=== PATIENT | male | born 1975 | race African-American/Black ===

== ENCOUNTER 2019-10-21 10:34 | Inpatient (IN) | payer OTHER ==
--- NOTE | 2019-10-21 10:48 | BHS.RME ---
Substance Use & Tx History - Substance Use History Alcohol Substance amount: 3 pints vodka 3 beers Frequency of use: Daily Substance route: Oral Date of Last Use: 10/21/19 (12 am) - Last Treatment Date of last treatment: 08/2019 Treatment type: Substance Use Disorder (AILYN) Where was last treatment: Detox Physical/Psych/Mental Status - Behavior General Behavior: Increased activity (restlessness, agitation) Eye Contact: Normal - Cooperativeness Cooperativeness: Cooperative - Thinking Thought Processes: Tight, Logical, Goal Directed Thought content: Future oriented - Physical Health Problems Is patient presently having any pain?: No Does patient presently have any injuries (include location): No Does patient currently have a fever: No Is patient : No CIWA Nausea/Vomitin Muscle Tremors: 3 Anxiety: 4-Mod. Anxious/Guarded Agitation: 3 Paroxysmal Sweats: 1-Minimal Palms Moist Orientation: 0-Oriented Tacttile Disturbances: 0-None Auditory Disturbances: 0-None Visual Disturbances: 0-None Headache: 2-Mild CIWA-Ar Total Score: 16
[2019-10-21 11:33] VITALS: BMI 26.6
--- NOTE | 2019-10-21 11:39 | HP ---
<Donna Ontiveros Brittanie - Last Filed: 10/21/19 11:34> CIWA Score Nausea/Vomitin Muscle Tremors: 3 Anxiety: 4-Mod. Anxious/Guarded Agitation: 3 Paroxysmal Sweats: 1-Minimal Palms Moist Orientation: 0-Oriented Tacttile Disturbances: 0-None Auditory Disturbances: 0-None Visual Disturbances: 0-None Headache: 2-Mild CIWA-Ar Total Score: 16 - Admission Criteria OASAS Guidelines: Admission for Medically Managed Detox: Requires at least one of the followin. CIWA greater than 12 2. Seizures within the past 24 hours 3. Delirium tremens within the past 24 hours 4. Hallucinations within the past 24 hours 5. Acute intervention needed for co occurring medical disorder 6. Acute intervention needed for co occurring psychiatric disorder 7. Severe withdrawal that cannot be handled at a lower level of care (continued vomiting, continued diarrhea, abnormal vital signs) requiring intravenous medication and/or fluids 8. Admitting History and Physical - Admission Chief Complaint: Mr. Peraza is a 43 yo man who presents to [facility] stating "I want to get off alcohol". History of Present Illness: Mr. Peraza is a 43 yo man who presents to [facility] stating "I want to get off alcohol". This is his first visit to [facility]. He was in the ED at [facility] last night for alcohol use and seizure and received Ativan, Librium and Keppra. Alcohol level 124, oxygern 89% PMH: Acid reflux, seizure PSH: none Psych: bipolar, depression Soc: homeless, not in jail Legal: none Substance use history: Alcohol: 3 pints Vodka, started age 20y, last use 10/21/19: 12 am. Beer 3 can of 24 ounces daily. Seizure history. History Source: Patient Limitations to Obtaining History: No Limitations Admission ROS [facility] Allergies/Adverse Reactions: Allergies Allergy/AdvReac Type Severity Reaction Status Date / Time Penicillins Allergy Intermediate Hives Verified 10/21/19 11:23 Exam Limitations: No Limitations - Ebola screening Have you traveled outside of the country in the last 21 days: No Have you had contact with anyone from an Ebola affected area: No Have you been sick,other than usual withdrawal symptoms: No Do you have a fever: No - Review of Systems Constitutional: No Symptoms Reported EENT: reports: Nose Congestion Respiratory: reports: No Symptoms reported Cardiac: reports: No Symptoms Reported GI: reports: No Symptoms Reported : reports: No Symptoms Reported Musculoskeletal: reports: No Symptoms Reported Integumentary: reports: No Symptoms Reported Neuro: reports: Tremors Endocrine: reports: No Symptoms Reported Hematology: reports: No Symptoms Reported Psychiatric: reports: Anxious Patient History - Substances abused Alcohol Substance route: Oral Frequency: Daily Amount used: 2 PINTS VODKA/3 BEERS Age of first use: 20 Date of last use: 10/20/19 Admission Physical Exam [facility] - Vital Signs Vital Signs: Vital Signs - 24 hr 10/21/19 11:30 Temperature 98.8 F Pulse Rate 114 H Respiratory 18 Rate Blood Pressure 126/85 Cleared for Admission [facility] - Detox or Rehab [facility] Level of Care: Medically Managed Breathalyzer - Breathalyzer Breathalyzer: 0 Urine Drug Screen - Test Device Lot number: [id number] Expiration date: 07/18/21 - Control Is test valid?: Yes - Results Drug screen NEGATIVE: No Urine drug screen results: BZO-Benzodiazepines Inpatient Rehab Admission - Rehab Decision to Admit Inpatient rehab admission?: No <Christiano Keys - Last Filed: 10/21/19 12:03> CIWA Score - Admission Criteria OASAS Guidelines: Admission for Medically Managed Detox: Requires at least one of the followin. CIWA greater than 12 2. Seizures within the past 24 hours 3. Delirium tremens within the past 24 hours 4. Hallucinations within the past 24 hours 5. Acute intervention needed for co occurring medical disorder 6. Acute intervention needed for co occurring psychiatric disorder 7. Severe withdrawal that cannot be handled at a lower level of care (continued vomiting, continued diarrhea, abnormal vital signs) requiring intravenous medication and/or fluids 8. Patient History - Patient Medical History Hx Anemia: No Hx Asthma: No Hx Chronic Obstructive Pulmonary Disease (COPD): No Hx Cancer: No Hx Cardiac Disorders: No Hx Congestive Heart Failure: No Hx Hypertension: No Hx Hypercholesterolemia: No Hx Pacemaker: No HX Cerebrovascular Accident: No Hx Seizures: Yes Hx Dementia: No Hx Diabetes: No - Patient Surgical History Past Surgical History: No Hx Neurologic Surgery: No Hx Cataract Extraction: No Hx Cardiac Surgery: No Hx Lung Surgery: No Hx Breast Surgery: No Hx Breast Biopsy: No Hx Abdominal Surgery: No Hx Appendectomy: No Hx Cholecystectomy: No Hx Genitourinary Surgery: No Hx Section: No Hx Orthopedic Surgery: No Hx Hysterectomy: No Anesthesia Reaction: No - PPD History Previous Implant?: Yes Documented Results: Negative w/o proof Implanted On Prior [facility] Admission?: No Date: 08/26/19 ([facility]) Results: negative PPD to be Administered?: Yes - Smoking Cessation Smoking history: Never smoked Have you smoked in the past 12 months: No Hx Chewing Tobacco Use: No Initiated information on smoking cessation: No - Substance & Tx. History Hx Alcohol Use: Yes (2months ago at [facility]) Substance Use Type: Alcohol Hx Substance Use Treatment: Yes Admission Physical Exam [facility] - Vital Signs Vital Signs: Vital Signs - 24 hr 10/21/19 11:30 Temperature 98.8 F Pulse Rate 114 H Respiratory 18 Rate Blood Pressure 126/85 - Physical HEENTM: Yes: EOMI, Hearing grossly Normal, Normal ENT Inspection, Normocephalic, Normal Voice, FORREST, Pharynx Normal, Tm's normal Respiratory: Yes: Chest Non-Tender, Lungs Clear, Normal Breath Sounds, No Respiratory Distress, No Accessory Muscle Use Neck: Yes: Within Normal Limits, No masses,lesions,Nodules, Supple, Trachea in good position Breast: Yes: Within Normal Limits Cardiology: Yes: Regular Rhythm, S1, S2, Tachycardia Abdominal: Yes: Normal Bowel Sounds, Soft, Decreased BS, Protuberent, Tenderness. No: Guarding, Rebound Genitourinary: Yes: Within Normal Limits Back: Yes: Normal Inspection Musculoskeletal: Yes: full range of Motion, Gait Steady, Pelvis Stable Extremities: Yes: Normal Capillary Refill, Normal Inspection, Normal Range of Motion, Non-Tender Neurological: Yes: lean engineer II-XII NML intact, Fully Oriented, Alert, Motor Strength 5/5, Normal Mood/Affect, Normal Response Integumentary: Yes: Normal Color, Warm Lymphatic: Yes: Within Normal Limits Screened but not Admitted - Documentation of Visit Screened but not Admitted: No Inpatient Rehab Admission - Rehab Decision to Admit Inpatient rehab admission?: No
[2019-10-21] MEDS ORDERED: IBUPROFEN 400 MG TABLET (FP) PO PRN (12:03)
[2019-10-21] MEDS ORDERED: ONDANSETRON *ODT* 4 MG TABLET SL ONE (12:03)
[2019-10-21] MEDS ORDERED: MAG HYDROX/AL HYDROX/SIMETH 30 ML UNIT-DOSE CUP PO PRN (12:03)
[2019-10-21] MEDS ORDERED: ACETAMINOPHEN 325 MG TABLET (FP) PO PRN ×2 (12:03)
[2019-10-21] MEDS ORDERED: BISMUTH SUBSALICYLATE 262 MG/15 ML BTL PO PRN (12:03)
[2019-10-21] MEDS ORDERED: MAGNESIUM HYDROX 2400MG/30ML ORAL SUSPENSION 30 ML CUP PO PRN (12:03)
[2019-10-21] MEDS ORDERED: METHOCARBAMOL 500 MG TABLET PO PRN (12:03)
[2019-10-21] MEDS ORDERED: chlordiazePOXIDE HCL 25 MG CAPSULE PO PRN (12:03)
[2019-10-21] MEDS ORDERED: MENTHOL/PHENOL 1 EACH UD MM PRN (12:03)
[2019-10-21] MEDS ORDERED: NICOTINE POLACRILEX 2 MG GUM BUC PRN (12:03)
[2019-10-21] MEDS ORDERED: MAGNESIUM CITRATE 300 ML BOTTLE PO PRN (12:03)
[2019-10-21] MEDS: PANTOPRAZOLE 40 MG TABLET PO SCH (14:12)
[2019-10-21] MEDS: GABAPENTIN 400 MG CAPSULE PO SCH ×2 (14:12→22:21)
[2019-10-21] MEDS: hydrOXYzine PAMOATE 25 MG CAPSULE (FP) PO SCH ×3 (14:13→22:21)
--- NOTE | 2019-10-21 14:48 | PN ---
[facility] Progress Note Note: Web Development Director attempted to interview patient. He is too drowsy to be seen at this time. Will re consult at a more appropriate time
[2019-10-21 15:24] LABS: HEMATOCRIT 33.4 % (35.4-49); HEMOGLOBIN 10.6 GM/dL (11.7-16.9); MCH 27.5 pg (25.7-33.7); MCHC 31.8 g/dl (32.0-35.9); MEAN CELL VOLUME 86.5 fl (80-96); MEAN PLT VOLUME 8.1 fl (7.5-11.1); PLATELET COUNT 363 K/MM3 (134-434); RBC 3.86 M/mm3 (4.00-5.60); RDW 23.1 % (11.9-15.9); WHITE BLOOD COUNT 7.8 K/mm3 (4.0-10.0)
[2019-10-21 16:10] LABS: ALBUMIN 3.7 g/dl (3.4-5.0); BILIRUBIN,TOTAL 0.8 mg/dL (0.2-1); BLOOD UREA NITROGEN 19.6 mg/dL (7-18); CALCIUM 9.1 mg/dL (8.5-10.1); CREATININE 1.2 mg/dL (0.55-1.3); POTASSIUM 3.6 mmol/L (3.5-5.1); TOT PROT 8.8 g/dl (6.4-8.2)
[2019-10-21] MEDS: chlordiazePOXIDE HCL 25 MG CAPSULE PO SCH ×2 (17:11→22:21)
[2019-10-21] MEDS: MELATONIN 5 MG TABLETS PO SCH (22:21)
[2019-10-21] MEDS: THIAMINE HCL 100 MG TABLET (FP) PO SCH (22:21)
[2019-10-21] MEDS: levETIRAcetam 500 MG TABLET (FP) PO SCH (22:21)
[2019-10-22] MEDS: GABAPENTIN 400 MG CAPSULE PO SCH ×3 (07:46→22:22)
[2019-10-22] MEDS: hydrOXYzine PAMOATE 25 MG CAPSULE (FP) PO SCH ×5 (07:46→22:25)
[2019-10-22] MEDS: chlordiazePOXIDE HCL 25 MG CAPSULE PO SCH ×4 (07:46→22:22)
--- NOTE | 2019-10-22 09:59 | PN ---
S CIWA - CIWA Score Nausea/Vomitin Muscle Tremors: 2 Anxiety: 2 Agitation: 2 Paroxysmal Sweats: 2 Orientation: 0-Oriented Tacttile Disturbances: 1-Very Mild Itch/Numbness Auditory Disturbances: 0-None Visual Disturbances: 0-None Headache: 1-Very Mild CIWA-Ar Total Score: 12 S Progress Note (SOAP) Subjective: alert,irritable,anxious,interrupted sleep,tremor,aching pain Objective: 10/22/19 09:56 Vital Signs Temperature 97.1 F L 10/22/19 09:01 Pulse Rate 121 H 10/22/19 09:01 Respiratory Rate 20 10/22/19 09:01 Blood Pressure 113/70 10/22/19 09:01 O2 Sat by Pulse Oximetry (%) Laboratory Last Values WBC 7.8 K/mm3 (4.0-10.0) 10/21/19 12:15 RBC 3.86 M/mm3 (4.00-5.60) L 10/21/19 12:15 Hgb 10.6 GM/dL (11.7-16.9) L 10/21/19 12:15 Hct 33.4 % (35.4-49) L 10/21/19 12:15 MCV 86.5 fl (80-96) 10/21/19 12:15 MCH 27.5 pg (25.7-33.7) 10/21/19 12:15 MCHC 31.8 g/dl (32.0-35.9) L 10/21/19 12:15 RDW 23.1 % (11.9-15.9) H 10/21/19 12:15 Plt Count 363 K/MM3 (134-434) 10/21/19 12:15 MPV 8.1 fl (7.5-11.1) 10/21/19 12:15 Sodium 138 mmol/L (136-145) 10/21/19 12:15 Potassium 3.6 mmol/L (3.5-5.1) 10/21/19 12:15 Chloride 95 mmol/L (98-107) L 10/21/19 12:15 Carbon Dioxide 31 mmol/L (21-32) 10/21/19 12:15 Anion Gap 12 MMOL/L (8-16) 10/21/19 12:15 BUN 19.6 mg/dL (7-18) H 10/21/19 12:15 Creatinine 1.2 mg/dL (0.55-1.3) 10/21/19 12:15 Est GFR (CKD-EPI)AfAm 85.92 10/21/19 12:15 Est GFR (CKD-EPI)NonAf 74.14 10/21/19 12:15 Random Glucose 104 mg/dL (74-106) 10/21/19 12:15 Calcium 9.1 mg/dL (8.5-10.1) 10/21/19 12:15 Total Bilirubin 0.8 mg/dL (0.2-1) 10/21/19 12:15 AST 48 U/L (15-37) H 10/21/19 12:15 ALT 51 U/L (13-61) 10/21/19 12:15 Alkaline Phosphatase 87 U/L (45-117) 10/21/19 12:15 Total Protein 8.8 g/dl (6.4-8.2) H 10/21/19 12:15 Albumin 3.7 g/dl (3.4-5.0) 10/21/19 12:15 RPR Titer Nonreactive (NONREACTIVE) 10/21/19 12:15 Assessment: 10/22/19 09:58 withdrawal symptom Plan: continue detox lirium regimen
[2019-10-22] MEDS: PRENATAL VITAMINS W/ FOLIC ACID TABLET (FP) PO SCH (10:54)
[2019-10-22] MEDS: PANTOPRAZOLE 40 MG TABLET PO SCH (10:55)
[2019-10-22] MEDS: NICOTINE 7 MG/24 HOURS TOPICAL PATCH TD SCH (10:58)
--- NOTE | 2019-10-22 13:58 | CONSULT ---
[facility] Psychiatric Consult - Data Date of interview: 10/22/19 Admission source: [facility] Identifying data: Patient is a 43 year old single male, without children, unemployed, homeless, and is supported by his grandmother. This is patient's first admission to detox at [facility]. Patient admitted to for alcohol dependence. Substance Abuse History: Smoking Cessation. Smoking history: Never smoked. Have you smoked in the past 12 months: No. Hx Chewing Tobacco Use: No. Initiated information on smoking cessation: No. - Substance & Tx. History. Hx Alcohol Use: Yes (2months ago at [facility]). Substance Use Type: Alcohol. Hx Substance Use Treatment: Yes Medical History: Acid reflux, seizure Psychiatric History: Patient denies history of psychiatric hospitalizations and suicide attempt. States that he first a psychiatrist five years ago at [facility] and was diagnosed with Bipolar disorder and claims to be prescribed seroquel 400mg HS. He also reports past treatment with prozac. Patient discontinued treatment in January of 2019 due to insurance issues and states that he has been receiving seroquel prescriptions from his PCP. At present patient re ports feeling sad and is experiencing difficulty sleeping. Physical/Sexual Abuse/Trauma History: denies. Mental Status Exam - Mental Status Exam Alert and Oriented to: Time, Place, Person Cognitive Function: Good Patient Appearance: Well Groomed Mood: Sad, Withdrawn Affect: Mood Congruent Patient Behavior: Cooperative Speech Pattern: Appropriate Voice Loudness: Normal Thought Process: Goal Oriented Thought Disorder: Not Present Hallucinations: Denies Suicidal Ideation: Denies Homicidal Ideation: Denies Insight/Judgement: Poor Sleep: Poorly Appetite: Fair Muscle strength/Tone: Normal Gait/Station: Normal Psychiatric Findings - Problem List ([place] 1, 2,3) (1) Alcohol use disorder Current Visit: Yes Status: Acute (2) Substance-induced sleep disorder Current Visit: Yes Status: Acute (3) Mood disorder Current Visit: Yes Status: Chronic - Initial Treatment Plan Initial Treatment Plan: Psychoeducation provided. Detoxification in progress. [facility] pharmacy contacted at [phone]. As per pharmacy staff patient most recently picked up a a 30 day prescription of seroquel 100mg on 08/24/19. Will order Seroquel 100mg HS. Benefits and side effects discussed. Verbal consent given.
[2019-10-22] MEDS: THIAMINE HCL 100 MG TABLET (FP) PO SCH (22:22)
[2019-10-22] MEDS: levETIRAcetam 500 MG TABLET (FP) PO SCH (22:22)
[2019-10-22] MEDS: QUEtiapine FUMARATE 100 MG TABLET (FP) PO SCH (22:22)
[2019-10-22] MEDS: MELATONIN 5 MG TABLETS PO SCH (22:23)
[2019-10-23] MEDS: hydrOXYzine PAMOATE 25 MG CAPSULE (FP) PO SCH ×5 (05:23→22:11)
[2019-10-23] MEDS: chlordiazePOXIDE HCL 25 MG CAPSULE PO SCH ×4 (05:23→22:09)
[2019-10-23] MEDS: GABAPENTIN 400 MG CAPSULE PO SCH ×3 (05:23→22:10)
[2019-10-23] MEDS: NICOTINE 7 MG/24 HOURS TOPICAL PATCH TD SCH (10:29)
[2019-10-23] MEDS: PRENATAL VITAMINS W/ FOLIC ACID TABLET (FP) PO SCH (10:29)
[2019-10-23] MEDS: PANTOPRAZOLE 40 MG TABLET PO SCH (10:29)
--- NOTE | 2019-10-23 11:00 | PN ---
S CIWA - CIWA Score Nausea/Vomitin-Mild Nausea/No Vomiting Muscle Tremors: 1-None Visible, but [place] Anxiety: 2 Agitation: 2 Paroxysmal Sweats: No Perspiration Orientation: 0-Oriented Tacttile Disturbances: 1-Very Mild Itch/Numbness Auditory Disturbances: 0-None Visual Disturbances: 0-None Headache: 2-Mild CIWA-Ar Total Score: 9 [facility] Progress Note (SOAP) Subjective: alert,irritable,anxious,interrupted sleep,pain in the body Objective: 10/23/19 11:07 Vital Signs Temperature 97.7 F 10/23/19 09:31 Pulse Rate 108 H 10/23/19 09:31 Respiratory Rate 19 10/23/19 09:31 Blood Pressure 108/73 10/23/19 09:31 O2 Sat by Pulse Oximetry (%) Assessment: 10/23/19 11:08 withdrawal symptom Plan: continue detox librium regimen
[2019-10-23] MEDS ORDERED: QUEtiapine FUMARATE 50 MG TABLET ONE (21:56)
[2019-10-23] MEDS: THIAMINE HCL 100 MG TABLET (FP) PO SCH (22:10)
[2019-10-23] MEDS: QUEtiapine FUMARATE 100 MG TABLET (FP) PO SCH (22:10)
[2019-10-23] MEDS: levETIRAcetam 500 MG TABLET (FP) PO SCH (22:10)
[2019-10-23] MEDS: MELATONIN 5 MG TABLETS PO SCH (22:11)
[2019-10-24] MEDS ORDERED: chlordiazePOXIDE HCL 10 MG CAPSULE PO PRN
[2019-10-24] MEDS: GABAPENTIN 400 MG CAPSULE PO SCH ×3 (06:41→22:09)
[2019-10-24] MEDS: hydrOXYzine PAMOATE 25 MG CAPSULE (FP) PO SCH ×5 (06:41→22:11)
[2019-10-24] MEDS: chlordiazePOXIDE HCL 10 MG CAPSULE PO SCH ×4 (06:42→22:09)
[2019-10-24] MEDS: PRENATAL VITAMINS W/ FOLIC ACID TABLET (FP) PO SCH (10:56)
[2019-10-24] MEDS: NICOTINE 7 MG/24 HOURS TOPICAL PATCH TD SCH (10:56)
[2019-10-24] MEDS: PANTOPRAZOLE 40 MG TABLET PO SCH (10:56)
--- NOTE | 2019-10-24 11:03 | PN ---
[facility] CIWA - CIWA Score Nausea/Vomitin-Mild Nausea/No Vomiting Muscle Tremors: 2 Anxiety: 2 Agitation: 2 Paroxysmal Sweats: No Perspiration Orientation: 0-Oriented Tacttile Disturbances: 1-Very Mild Itch/Numbness Auditory Disturbances: 0-None Visual Disturbances: 0-None Headache: 1-Very Mild CIWA-Ar Total Score: 9 S Progress Note (SOAP) Subjective: alert,irritable,anxious,interrupted sleep,tremor Objective: 10/24/19 11:00 Vital Signs Temperature 98.0 F 10/24/19 08:33 Pulse Rate 87 10/24/19 08:33 Respiratory Rate 19 10/24/19 08:33 Blood Pressure 155/92 10/24/19 08:33 O2 Sat by Pulse Oximetry (%) Laboratory Last Values WBC 7.8 K/mm3 (4.0-10.0) 10/21/19 12:15 RBC 3.86 M/mm3 (4.00-5.60) L 10/21/19 12:15 Hgb 10.6 GM/dL (11.7-16.9) L 10/21/19 12:15 Hct 33.4 % (35.4-49) L 10/21/19 12:15 MCV 86.5 fl (80-96) 10/21/19 12:15 MCH 27.5 pg (25.7-33.7) 10/21/19 12:15 MCHC 31.8 g/dl (32.0-35.9) L 10/21/19 12:15 RDW 23.1 % (11.9-15.9) H 10/21/19 12:15 Plt Count 363 K/MM3 (134-434) 10/21/19 12:15 MPV 8.1 fl (7.5-11.1) 10/21/19 12:15 Sodium 138 mmol/L (136-145) 10/21/19 12:15 Potassium 3.6 mmol/L (3.5-5.1) 10/21/19 12:15 Chloride 95 mmol/L (98-107) L 10/21/19 12:15 Carbon Dioxide 31 mmol/L (21-32) 10/21/19 12:15 Anion Gap 12 MMOL/L (8-16) 10/21/19 12:15 BUN 19.6 mg/dL (7-18) H 10/21/19 12:15 Creatinine 1.2 mg/dL (0.55-1.3) 10/21/19 12:15 Est GFR (CKD-EPI)AfAm 85.92 10/21/19 12:15 Est GFR (CKD-EPI)NonAf 74.14 10/21/19 12:15 Random Glucose 104 mg/dL (74-106) 10/21/19 12:15 Calcium 9.1 mg/dL (8.5-10.1) 10/21/19 12:15 Total Bilirubin 0.8 mg/dL (0.2-1) 10/21/19 12:15 AST 48 U/L (15-37) H 10/21/19 12:15 ALT 51 U/L (13-61) 10/21/19 12:15 Alkaline Phosphatase 87 U/L (45-117) 10/21/19 12:15 Total Protein 8.8 g/dl (6.4-8.2) H 10/21/19 12:15 Albumin 3.7 g/dl (3.4-5.0) 10/21/19 12:15 RPR Titer Nonreactive (NONREACTIVE) 10/21/19 12:15 Assessment: 10/24/19 11:01 withdrawal symptom Plan: continue detox librium regimen, bun elevated probably due to dehydration,encourage oral fluid
[2019-10-24] MEDS: THIAMINE HCL 100 MG TABLET (FP) PO SCH (22:09)
[2019-10-24] MEDS: levETIRAcetam 500 MG TABLET (FP) PO SCH (22:09)
[2019-10-24] MEDS: MELATONIN 5 MG TABLETS PO SCH (22:09)
[2019-10-24] MEDS: QUEtiapine FUMARATE 100 MG TABLET (FP) PO SCH (22:09)
[2019-10-25] MEDS: chlordiazePOXIDE HCL 10 MG CAPSULE PO SCH ×2 (06:01→17:59)
[2019-10-25] MEDS: hydrOXYzine PAMOATE 25 MG CAPSULE (FP) PO SCH ×5 (06:01→22:14)
[2019-10-25] MEDS: GABAPENTIN 400 MG CAPSULE PO SCH ×3 (06:01→22:12)
[2019-10-25] MEDS: PRENATAL VITAMINS W/ FOLIC ACID TABLET (FP) PO SCH (10:09)
[2019-10-25] MEDS: NICOTINE 7 MG/24 HOURS TOPICAL PATCH TD SCH (10:09)
[2019-10-25] MEDS: PANTOPRAZOLE 40 MG TABLET PO SCH (10:09)
--- NOTE | 2019-10-25 11:49 | PN ---
S CIWA - CIWA Score Nausea/Vomitin-No Nausea/No Vomiting Muscle Tremors: 2 Anxiety: 1-Mildly Anxious Agitation: 1-Slight > Activity Paroxysmal Sweats: No Perspiration Orientation: 0-Oriented Tacttile Disturbances: 0-None Auditory Disturbances: 0-None Visual Disturbances: 0-None Headache: 0-None Present CIWA-Ar Total Score: 4 [facility] Progress Note (SOAP) Subjective: feeling better little sweats Objective: 10/25/19 11:46 Vital Signs Temperature 96.4 F L 10/25/19 08:44 Pulse Rate 83 10/25/19 08:44 Respiratory Rate 18 10/25/19 08:44 Blood Pressure 129/75 10/25/19 08:44 O2 Sat by Pulse Oximetry (%) aaox3 ambulating no acute distress Assessment: 10/25/19 11:49 mild withdrawals Plan: continue detox d/c in am
[2019-10-25] MEDS ORDERED: ONDANSETRON *ODT* 4 MG TABLET SL ONE (19:00)
[2019-10-25] MEDS: THIAMINE HCL 100 MG TABLET (FP) PO SCH (22:12)
[2019-10-25] MEDS: levETIRAcetam 500 MG TABLET (FP) PO SCH (22:12)
[2019-10-25] MEDS: QUEtiapine FUMARATE 100 MG TABLET (FP) PO SCH (22:12)
[2019-10-25] MEDS: MELATONIN 5 MG TABLETS PO SCH (22:13)
[2019-10-26] MEDS ORDERED: chlordiazePOXIDE HCL 10 MG CAPSULE PO ONE (05:00)
[2019-10-26] MEDS: hydrOXYzine PAMOATE 25 MG CAPSULE (FP) PO SCH ×2 (05:39→10:12)
[2019-10-26] MEDS: GABAPENTIN 400 MG CAPSULE PO SCH (05:39)
[2019-10-26 07:10] VITALS: BP 117/72; PULSE 85; TEMP 97.1
--- NOTE | 2019-10-26 09:13 | DS ---
[facility] Detox Discharge Summary Admission Date: 10/21/19 Discharge Date: 10/26/19 - History Present History: Alcohol Dependence - Physical Exam Results Vital Signs: Vital Signs Temperature 97.1 F L 10/26/19 05:30 Pulse Rate 85 10/26/19 05:30 Respiratory Rate 18 10/26/19 05:30 Blood Pressure 117/72 10/26/19 05:30 O2 Sat by Pulse Oximetry (%) Pertinent Admission Physical Exam Findings: Vital Signs Temperature 97.1 F L 10/26/19 05:30 Pulse Rate 85 10/26/19 05:30 Respiratory Rate 18 10/26/19 05:30 Blood Pressure 117/72 10/26/19 05:30 O2 Sat by Pulse Oximetry (%) Laboratory Tests 10/21/19 10/21/19 10/21/19 12:15 12:15 12:15 WBC 7.8 RBC 3.86 L Hgb 10.6 L Hct 33.4 L MCV 86.5 MCH 27.5 MCHC 31.8 L RDW 23.1 H Plt Count 363 MPV 8.1 Sodium 138 Potassium 3.6 Chloride 95 L Carbon Dioxide 31 Anion Gap 12 BUN 19.6 H Creatinine 1.2 Est GFR (CKD-EPI)AfAm 85.92 Est GFR (CKD-EPI)NonAf 74.14 Random Glucose 104 Calcium 9.1 Total Bilirubin 0.8 AST 48 H ALT 51 Alkaline Phosphatase 87 Total Protein 8.8 H Albumin 3.7 RPR Titer Nonreactive aaox3 ambulating no acute distress lungs CTA - Treatment Hospital Course: Detox Protocol Followed, Detoxed Safely, Responded well, Discharged Condition Good, Rehab Referral Accepted - Medication Discharge Medications: Ambulatory Orders Folic Acid - 1 mg PO DAILY 10/21/19 Gabapentin [Neurontin -] 400 mg PO Q8H 10/21/19 Omeprazole 20 mg PO DAILY 10/21/19 Quetiapine Fumarate [Seroquel -] 100 mg PO HS 10/21/19 levETIRAcetam [Keppra -] 1,000 mg PO HS 10/21/19 - Diagnosis (1) Alcohol use disorder Current Visit: Yes Status: Acute (2) Substance-induced sleep disorder Current Visit: Yes Status: Acute (3) Depressive disorder Current Visit: Yes Status: Chronic (4) History of bipolar disorder Current Visit: Yes Status: Chronic (5) Mood disorder Current Visit: Yes Status: Chronic - AMA Did Patient Leave Against Medical Advice: No
[2019-10-26] MEDS: NICOTINE 7 MG/24 HOURS TOPICAL PATCH TD SCH (10:12)
[2019-10-26] MEDS: PRENATAL VITAMINS W/ FOLIC ACID TABLET (FP) PO SCH (10:12)
[2019-10-26] MEDS: PANTOPRAZOLE 40 MG TABLET PO SCH (10:12)
== END 2019-10-26 11:35 | disposition home or self-care (01) | DRG 775 ==
LOC: YASAS 10:34 → Y6N 12:05
PROVIDERS: ADMIT Allergy & Immunology; ATTEND Allergy & Immunology
PROC: HZ2ZZZZ Detoxification Services for Substance Abuse Treatment (ICD-10-PCS; principal; 2019-10-21)
DX: F10.230 Alcohol dependence with withdrawal, uncomplicated (principal); F19.24 Other psychoactive substance dependence with psychoactive substance-induced mood disorder; F31.9 Bipolar disorder, unspecified; F39 Unspecified mood [affective] disorder; R56.9 Unspecified convulsions; K21.9 Gastro-esophageal reflux disease without esophagitis; Z56.0 Unemployment, unspecified; Z59.0 Homelessness; Z88.0 Allergy status to penicillin
CPT/HCPCS: 36415; 80053; 85027; 86593; Q0162